=== PATIENT | male | born 1960 | race Caucasian/White ===

== ENCOUNTER → 2017-08-15 | Outpatient (CLI) | payer MEDICAID | END | disposition home or self-care (01) | LOC: RAD 15:28 | PROVIDERS: ATTEND Nurse Practitioner Family | DX: M51.36 Other intervertebral disc degeneration, lumbar region (principal) | CPT/HCPCS: 72100 ==

== ENCOUNTER → 2017-08-31 | Outpatient (CLI) | payer MEDICAID | END | disposition home or self-care (01) | LOC: RAD 11:12 | PROVIDERS: ATTEND Nurse Practitioner Family | DX: M19.071 Primary osteoarthritis, right ankle and foot (principal); M77.32 Calcaneal spur, left foot; M77.31 Calcaneal spur, right foot; M54.6 Pain in thoracic spine; M20.11 Hallux valgus (acquired), right foot; M20.12 Hallux valgus (acquired), left foot | CPT/HCPCS: 72070; 73030; 73610; 73630 ==

== ENCOUNTER 2018-05-17 18:03 | Emergency (ER) | payer MEDICAID ==
[~2018-05-17] VITALS: Ht 170.2 cm; Wt 79.0 kg
[2018-05-17] MEDS ORDERED: METF-816 PO (18:34)
[2018-05-17] MEDS ORDERED: MORPHINE SULFATE 4 MG/ML CPJ (NOT FOR IM USE) IV STA (23:08)
[2018-05-17] MEDS ORDERED: ONDANSETRON HCL 4MG/2ML INJ IV STA (23:08)
[2018-05-17] MEDS ORDERED: KETOROLAC 30MG/ML VIAL IV STA (23:08)
[2018-05-17] MEDS ORDERED: SODIUM CHLORIDE 0.9% 1,000 ML IV ONE (23:08)
[2018-05-17] MEDS ORDERED: CEFTRIAXONE 1 G PREMIX 50 ML IV ONE (23:15)
[2018-05-17] MEDS ORDERED: VANCOMYCIN 1 G PREMIX 200 ML IV SCH (23:15)
[2018-05-18 00:05] LABS: BASOPHILS % 0.5 % (0.0-2.0); EOSINOPHILS % 1.9 % (0.0-5.0); HEMOGLOBIN. 13.7 g/dL (14.0-18.0); LYMPHOCYTES % 21.7 % (20.0-50.0); MEAN CORPUSCULAR HEMOGLOBIN 29.2 pg (28.0-32.0); MEAN CORPUSCULAR VOLUME 87.8 fL (80.0-94.0); MEAN PLATELET VOLUME 8.1 fl (7.4-10.4); MONOCYTES % 9.2 % (2.0-8.0); NEUTROPHILS % 66.7 % (40.0-76.0); PLATELET 321 x1000/uL (130-400); RED BLOOD CELL COUNT 4.67 mill/uL (4.7-6.1); RED CELL DISTRIBUTION WIDTH 12.9 % (11.6-14.6)
[2018-05-18 00:07] LABS: CHLORIDE 99 mEq/L (98-107)
[2018-05-18 00:34] LABS: CLARITY URINE CLEAR (CLEAR); COLOR URINE YELLOW (YELLOW); KETONES URINE NEGATIVE (NEGATIVE); LEUKOCYTE ESTERASE URINE NEGATIVE (NEGATIVE); NITRITE URINE NEGATIVE (NEGATIVE); OCCULT BLOOD URINE NEGATIVE (NEGATIVE); PROTEIN URINE NEGATIVE (NEGATIVE); SPECIFIC GRAVITY URINE 1.037 (1.005-1.030)
[2018-05-18 11:33] VITALS: BP 145/72
== END 2018-05-18 12:42 | disposition left against medical advice (07) ==
LOC: ER 18:03 → CANBEDREQ 05-18 11:33 → ER 05-18 12:42
DX: M65.88 Other synovitis and tenosynovitis, other site (principal); E11.9 Type 2 diabetes mellitus without complications; F17.200 Nicotine dependence, unspecified, uncomplicated; W45.8XXA Other foreign body or object entering through skin, initial encounter; Y93.89 Activity, other specified; Y92.89 Other specified places as the place of occurrence of the external cause; Y99.8 Other external cause status
CPT/HCPCS: 36415; 80053; 81003; 82962; 83605; 84145; 85025; 87040; 87086; 96365; 96375; 99291; J0696; J1885; J2270; J2405; J3370; J7030

== ENCOUNTER 2018-05-23 20:56 | Emergency (ER) | payer MEDICAID ==
[~2018-05-23] VITALS: Ht 170.2 cm; Wt 82.0 kg
[~2018-05-23 20:56] MED LIST: METF-816 PO
[2018-05-23] MEDS ORDERED: ONDANSETRON HCL 4MG/2ML INJ IV STA (22:20)
[2018-05-23] MEDS ORDERED: KETOROLAC 30MG/ML VIAL IV STA (22:20)
[2018-05-23] MEDS ORDERED: SODIUM CHLORIDE 0.9% 1,000 ML IV ONE (22:20)
[2018-05-23] MEDS ORDERED: MORPHINE SULFATE 4 MG/ML CPJ (NOT FOR IM USE) IV STA (22:20)
[2018-05-23] MEDS ORDERED: VANCOMYCIN 1 G PREMIX 200 ML IV SCH (22:30)
[2018-05-23] MEDS ORDERED: PIPERACILLIN/TAZ 3.375G PREMIX 50 ML IV ONE (22:30)
[2018-05-23 23:40] LABS: BASOPHILS % 0.3 % (0.0-2.0); EOSINOPHILS % 1.3 % (0.0-5.0); HEMATOCRIT. 38.3 % (42.0-52.0); HEMOGLOBIN. 12.9 g/dL (14.0-18.0); LYMPHOCYTES % 21.7 % (20.0-50.0); MEAN CORPUSCULAR HEMOGLOBIN 29.3 pg (28.0-32.0); MEAN CORPUSCULAR VOLUME 86.9 fL (80.0-94.0); MEAN PLATELET VOLUME 8.2 fl (7.4-10.4); MONOCYTES % 8.5 % (2.0-8.0); NEUTROPHILS % 68.2 % (40.0-76.0); PLATELET 304 x1000/uL (130-400); RED BLOOD CELL COUNT 4.41 mill/uL (4.7-6.1); RED CELL DISTRIBUTION WIDTH 13.2 % (11.6-14.6)
[2018-05-23 23:46] LABS: CHLORIDE 103 mEq/L (98-107)
[2018-05-23 23:50] LABS: ETHANOL BLOOD < 10 mg/dL; PARTIAL THROMBOPLASTIN TIME 28.7 sec (23.4-31.0); PROTHROMBIN TIME 9.9 sec (9.1-11.1)
[2018-05-24 05:22] LABS: *AMPHETAMINES SCREEN URINE NEGATIVE (NEGATIVE); *BARBITURATES SCREEN URINE NEGATIVE (NEGATIVE); *BENZODIAZEPINES SCREEN URINE NEGATIVE (NEGATIVE); CANNABINOID URINE SCREEN NEGATIVE (NEGATIVE)
[2018-05-24 05:23] LABS: *COCAINE SCREEN URINE PRESUMTIVE POSITIVE (NEGATIVE); METHADONE URINE SCREEN NEGATIVE (NEGATIVE); OPIATES URINE SCREEN PRESUMTIVE POSITIVE (NEGATIVE); PHENCYCLIDINE URINE SCREEN NEGATIVE (NEGATIVE)
[2018-05-24] MEDS ORDERED: SODIUM CHLORIDE 0.9% 1,000 ML IV ONE (09:30)
[2018-05-24] MEDS ORDERED: MORPHINE SULFATE 4 MG/ML CPJ (NOT FOR IM USE) IV ONE (13:45)
[2018-05-24] MEDS ORDERED: ONDANSETRON HCL 4MG/2ML INJ IV ONE (13:45)
[2018-05-24 21:38] VITALS: BP 179/98
== END 2018-05-24 21:56 | disposition short-term general hospital (02) ==
LOC: ER 21:12 → CANBEDREQ 05-24 17:40 → ER 05-24 21:56
DX: M65.9 Synovitis and tenosynovitis, unspecified (principal); L08.9 Local infection of the skin and subcutaneous tissue, unspecified; E11.9 Type 2 diabetes mellitus without complications; S61.210A Laceration without foreign body of right index finger without damage to nail, initial encounter; W26.8XXA Contact with other sharp object(s), not elsewhere classified, initial encounter; Y93.9 Activity, unspecified; Y92.9 Unspecified place or not applicable
CPT/HCPCS: 36415; 73130; 80053; 80305; 80320; 82962; 83605; 85025; 85610; 85730; 87040; 87086; 96365; 96367; 96375; 96376; 99285; J1885; J2270; J2405; J2543; J3370; J7030; Z7610; G0480

== ENCOUNTER 2019-05-24 04:05 | Emergency (ER) | payer MEDICAID ==
[~2019-05-24] VITALS: Ht 170.2 cm; Wt 80.0 kg
[2019-05-24 04:07] VITALS: BP 165/100
== END 2019-05-24 04:24 | disposition left against medical advice (07) ==
LOC: ER 04:13
DX: Z04.1 Encounter for examination and observation following transport accident (principal); Z53.21 Procedure and treatment not carried out due to patient leaving prior to being seen by health care provider

== ENCOUNTER 2021-08-14 09:45 | Emergency (ER) | payer MEDICAID, OTHER ==
[~2021-08-14] VITALS: Ht 167.6 cm; Wt 72.0 kg
[~2021-08-14 09:45] MED LIST changes: -METF-816 PO; +METF-874 PO
[2021-08-14] MEDS ORDERED: ACETAMINOPHEN 325MG TABLET PO STA (11:17)
[2021-08-14] MEDS ORDERED: SODIUM CHLORIDE 0.9% 1,000 ML IV ONE (11:30)
[2021-08-14] MEDS ORDERED: VANCOMYCIN 1G PREMIX 200 ML IV ONE (11:30)
[2021-08-14] MEDS ORDERED: PIPERACILLIN/TAZ 3.375G PREMIX 50 ML IV ONE (11:30)
[2021-08-14 12:05] LABS: BASOPHILS % 0.5 % (0.0-2.0); EOSINOPHILS % 0.7 % (0.0-5.0); HEMATOCRIT. 32.8 % (42.0-52.0); HEMOGLOBIN. 10.8 g/dL (14.0-18.0); MEAN CORPUSCULAR HEMOGLOBIN 28.2 pg (28.0-32.0); MEAN CORPUSCULAR VOLUME 85.5 fL (80.0-94.0); MEAN PLATELET VOLUME 7.5 fl (7.4-10.4); MONOCYTES % 9.3 % (2.0-8.0); NEUTROPHILS % 80.5 % (40.0-76.0); PLATELET 365 x1000/uL (130-400); RED BLOOD CELL COUNT 3.84 mill/uL (4.7-6.1); RED CELL DISTRIBUTION WIDTH 13.9 % (11.6-14.6)
[2021-08-14 12:12] LABS: CHLORIDE 102 mEq/L (98-107)
[2021-08-14 12:20] LABS: PROTHROMBIN TIME 10.3 sec (9.6-11.0)
[2021-08-14 14:15] LABS: CLARITY URINE CLEAR (CLEAR); COLOR URINE YELLOW (YELLOW); KETONES URINE NEGATIVE (NEGATIVE); LEUKOCYTE ESTERASE URINE NEGATIVE (NEGATIVE); NITRITE URINE NEGATIVE (NEGATIVE); OCCULT BLOOD URINE NEGATIVE (NEGATIVE); PH URINE 5.5 (4.5-8.0); PROTEIN URINE TRACE (NEGATIVE); SPECIFIC GRAVITY URINE 1.021 (1.005-1.030)
[2021-08-14] MEDS ORDERED: KETOROLAC 30MG/ML VIAL IV ONE (16:30)
[2021-08-14] MEDS ORDERED: PIPERACILLIN/TAZ 3.375G PREMIX 50 ML IV SCH (17:45)
[2021-08-14] MEDS ORDERED: ACETAMINOPHEN 325MG TABLET PO SCH (17:45)
[2021-08-14] MEDS ORDERED: VANCOMYCIN 1G PREMIX 200 ML IV SCH (18:30)
[2021-08-14 20:07] VITALS: BP 143/72
== END 2021-08-14 21:01 | disposition short-term general hospital (02) ==
LOC: ER 09:45 → CANBEDREQ 22:38
DX: L03.116 Cellulitis of left lower limb (principal); E11.9 Type 2 diabetes mellitus without complications; E78.00 Pure hypercholesterolemia, unspecified; I10 Essential (primary) hypertension; F17.210 Nicotine dependence, cigarettes, uncomplicated
CPT/HCPCS: 36415; 71045; 73630; 80053; 81003; 83605; 84145; 85025; 85610; 87040; 87086; 93005; 96365; 96367; 96375; 99285; J1885; J2543; J3370; J7030